=== PATIENT | male | born 1990 | race Hispanic/Latino ===

== ENCOUNTER → 2022-05-28 | Outpatient (CLI) | payer OTHER | LOC: M PLAIMG 09:29 | PROVIDERS: ATTEND Internal Medicine | DX: J98.4 Other disorders of lung (principal) ==

== ENCOUNTER 2025-07-09 13:01 | Emergency (ER) | payer OTHER ==
[~2025-07-09] VITALS: Ht 170.2 cm; Wt 92.5 kg
[2025-07-09 15:29] LABS: BASO # 0.0 10^3/uL (0.0-0.2); BASO % 0.5 % (0.0-1.0); EOS # 0.1 10^3/uL (0.0-0.5); EOS % 1.4 % (0.0-3.0); LYMPH # 1.1 10^3/uL (1.5-5.0); LYMPH % 15.4 % (24.0-44.0); MONO # 0.4 10^3/uL (0.0-0.8); MONO % 4.7 % (2.0-8.0); NEUTROPHILS # 5.7 10^3/uL (1.5-8.5); NEUTROPHILS % 77.7 % (36.0-66.0); PLATELET COUNT, AUTOMATED 267 10^3/uL (150-450)
[2025-07-09 15:51] LABS: CK-MB VALUE MASS 2.5 NG/ML (<3.6)
[2025-07-09 15:53] LABS: ALT/SGPT 45 U/L (7.0-40); AST/SGOT 40 U/L (<34); CALCIUM LEVEL 9.4 MG/DL (8.5-10.1); CARBON DIOXIDE LEVEL 27 MMOL/L (20-31); CHLORIDE LEVEL 102 MMOL/L (98-107); CREATININE FOR GFR 0.91 MG/DL (0.70-1.30); GLOMERULAR FILTRATION RATE > 90.0 (>60); POTASSIUM SERUM 4.6 MMOL/L (3.5-5.1); SODIUM LEVEL 139 MMOL/L (136-145)
[2025-07-09 16:10] LABS: CPK CREATINE PHOSPHOKINASE 358 U/L (46-171); MB/CK RELATIVE INDEX 0.69 (< OR =4)
[2025-07-09 16:56] LABS: CK-MB VALUE MASS 2.6 NG/ML (<3.6)
[2025-07-09 17:14] LABS: CPK CREATINE PHOSPHOKINASE 341.0 U/L (46-171); MB/CK RELATIVE INDEX 0.76 (< OR =4)
[2025-07-09 17:59] VITALS: BP 152/68; TEMP 97.6; O2SAT 100
== END 2025-07-09 18:06 | disposition home or self-care (01) ==
LOC: M ED 13:01
DX: K21.9 Gastro-esophageal reflux disease without esophagitis (principal); E78.5 Hyperlipidemia, unspecified